=== PATIENT | female | born 1980 | race Caucasian/White ===

== ENCOUNTER 2024-12-10 08:13 | Emergency (ER) | payer OTHER, SELFPAY ==
[2024-12-10 08:14] VITALS: BP 114/87; PULSE 84; RESP 16; TEMP 36.8; O2SAT 100; BMI 33.4
[2024-12-10 08:16] VITALS: BP 110/76; PULSE 84; RESP 16
--- NOTE | 2024-12-10 08:49 | ED.VIS.BACK ---
HPI History of Present Illness Chief Complaint: Chest Pain Detail of Chief Complaint: Left posterior shoulder pain. Denies any trauma. Informant: patient Onset/Context/Timing Onset: Days Context: Gradual Onset Timing: Continuous Quality: Sharp Location: - (Left posterior shoulder blade medially.) Current Severity: Moderate Maximum Severity: Moderate Worsened by: improves with Movement Relieved by: Nothing Associated Symptoms Associated Symptoms: Negative for Numbness, Tingling, Radiation to Right Leg, Radiation to Left Leg, Fever, Abdominal Pain, Dysuria, Unable to Ambulate, Unable to Transfer, Urinary Retention, Urinary Incontinence, Constipation or Fecal Incontinence Narrative Narrative: 44-year-old female no past medical history. Complaining of left posterior shoulder blade soft tissue pain. Denies any fall injury or trauma. 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 She is left-hand dominant send and radiates to the back of her left shoulder. Denies any chest pain. No shortness of breath. No exertional dyspnea or exertional chest pain. No cardiac history. Prior similar symptoms: No Recent Illness/Hospitalization: No PFSH PFSH Medical History no medical history no medical history Home Medications ?Medication ?Instructions ?Recorded ?Last Taken ?Type metaxalone 800 mg tablet 800 mg PO TID 7 days #21 tabs 12/10/24 Unknown Rx Allergy/AdvReac Type Severity Reaction Status Date / Time No Known Allergies Allergy Verified 12/10/24 08:14 Surgical History no surgical history Social History Smoking Status: Former smoker ROS ROS ED ROS Narrative Left posterior upper back and shoulder blade pain. Constitutional Constitutional ED: Denies chills or fever(s) Eyes Eyes: Denies blurry vision ENT ENT ED: Denies ear pain Cardiovascular Cardiovascular: Denies chest pain Respiratory/Chest Respiratory/Chest: Denies dyspnea or dyspnea on exertion Gastrointestinal Gastrointestinal: Denies abdominal pain Genitourinary Genitourinary ED: Denies dysuria or hematuria Musculoskeletal Musculoskeletal: Denies arthralgias or back pain Integumentary Denies abscess Neurologic Neurologic: Denies headache(s) Psychiatric Psychiatric: Denies anxiety Endocrine Endocrinology: Denies cold intolerance Hematologic/Lymphatic Hematologic/Lymphatic: Denies easy bleeding Allergic/Immunologic Allergic/Immunologic ED: Denies mouth swelling EXAM Physical Exam Narrative Exam Narrative: Well-appearing 44-year-old female. Vital signs stable afebrile. Pulse ox 100% on room air no hypoxia. H EENT exam pupils round react light. Mytrex membranes. Neck nontender no JVD. No lymphadenopathy. Lungs clear to auscultation bilaterally. Heart regular rate and rhythm rate about 80 no murmur. Chest wall and ribs are nontender. Abdomen soft nontender. Moving all 4 extremities. 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 Dorsi plantarflexion. Calves are nontender without edema or cords. Normal radial pulses bilaterally. Back she has reproducible pain soft tissue between her upper thoracic spine and her shoulder blade. It is worse with range of motion. There is no ecchymosis or bruising. No redness or warmth. She has normal range of motion to her left shoulder. There is no swelling or redness to the shoulder. Pain is worse sitting upright. Const Vital Signs: 12/10/24 08:14 12/10/24 08:16 12/10/24 10:16 Temperature 98.2 F Temperature Source Temporal Pulse Rate 84 84 73 Respiratory Rate 16 16 17 Blood Pressure 114/87 H 110/76 Blood Pressure Mean 96 87 Pulse Ox 100 98 Oxygen Delivery Method Room Air Room Air 12/10/24 10:19 Temperature Temperature Source Pulse Rate Respiratory Rate Blood Pressure Blood Pressure Mean Pulse Ox Oxygen Delivery Method Room Air Positive well nourished and well developed; Negative for cachectic, contractures or unkempt General Appearance ED: well developed; Negative for unkempt, cachectic, contractures or pallor Nutritional Appearance: Negative for cachectic HEENT Reports moist mucous membranes Negative for trauma or tenderness Eyes PERRL and EOMs intact bilaterally Neck no lymphadenopathy, supple and no JVD Resp normal respiratory effort and clear to auscultation bilaterally Cardio regular rate, regular rhythm, S1 normal heart sound, S2 normal heart sound and no murmurs GI normal to inspection, nondistended, normoactive bowel sounds, soft to palpation, non-tender, non-distended and no masses Back/Spine no thoracic nor lumbar tenderness; Negative for normal to inspection Back/Spine Narrative: Parathoracic soft tissue tenderness consistent with myofascial strain and spasm. No bony tenderness. Normal appearance on the skin. No redness or warmth. No bruising or swelling. Extremity normal to inspection and no clubbing, cyanosis or edema Extremity Narrative: Normal range of motion left shoulder. Shoulder nontender. Normal range of motion, strength and sensation to the left upper extremity. General Extremety ED: Negative for edema or tenderness General Extremity: Negative for edema Neuro oriented x3 and no sensory deficits noted Sensorium / Orientation: alert; Negative for confused, lethargic or stuporous Motor Exam: strength 5/5 throughout Psych mental status grossly normal Appearance: Negative for unkempt Attitude: No agitated Mood & Affect: Negative for depressed, sad or tearful Skin no rashes or lesions noted and no wounds General Skin Exam: Negative for jaundice or pallor Lesions: No lesion noted Rashes: No rashes noted Trauma: Negative for abrasion or puncture Wounds: Negative for wounds noted MDM MDM MDM Narrative Medical decision making narrative: 44-year-old with left posterior shoulder upper back pain consistent with a myofascial strain and spasm. I do not think this is cardiac. She was triaged as chest pain she is not having any chest pain this has been going on a week. She is not having any exertional symptoms. She has a normal EKG. Cardiac labs and chest x-ray to be obtained should be treated with Toradol and Skelaxin I think this is all musculoskeletal in etiology. Repeat exam at 10:43 AM patient doing well. Some relief with the Toradol. We went over her test results. Clinically this is not cardiac chest pain. Its all back pain. Consistent with muscle spasm type of work she does. She will be discharged home. Anti-inflammatories. Hot shower, warm bath, massage. Skelaxin 3 times a day till gone. This should progressively improve. She and I discussed all of her test results. History & Record Review Discussion w/independent historian: Patient Lab Data Attestation: I reviewed the patient's lab results. Lab results narrative: CBC normal. White count 8. H&H 13 and 40. Platelets 304. Electrolytes unremarkable gap 10. BUN 9 creatinine 0.6. Glucose 90. Troponin less than 6. Chest x-ray unremarkable. Labs: Laboratory Results - last 24 hr 12/10/24 08:57 WBC 8.8 RBC 4.50 Hgb 13.5 Hct 40.6 MCV 90.2 MCH 30.0 MCHC 33.3 RDW Std Deviation 44.6 H RDW Coeff of Molly 13.4 Plt Count 304 MPV 10.6 Immature Gran % (Auto) 0.200 Neut % (Auto) 50.8 Lymph % (Auto) 33.0 [place] % (Auto) 10.2 H Eos % (Auto) 3.6 Baso % (Auto) 2.2 H Absolute Neuts (auto) 4.5 Absolute Lymphs (auto) 2.91 Nucleated RBC % 0 Sodium 138 Potassium 4.0 Chloride 106 Carbon Dioxide 22.7 Anion Gap 10 BUN 9 Creatinine 0.62 L Estim Creat Clear Calc 131.80 Est GFR (MDRD) Non-Af 114 BUN/Creatinine Ratio 15.3 Glucose 90 Calcium 9.1 Troponin T High Sens < 6 Radiography Chest X-Ray - ED: 2 View, Read by ED Physician, Read by Radiologist, Normal, Heart, Lungs, Mediastinum, Bony Structures, No Acute Disease and Chronic Changes Diagnostic Testing: Clinical Impression(s) from Imaging Studies Chest X-Ray 12/10/24 09:15 IMPRESSION: NO ACUTE FINDINGS. Reading Location: [facility] Chest x-ray, 2 views, AP and lateral, interpreted by myself and radiologist shows no acute abnormality. Normal cardiac silhouette. Normal lung costa. Rhythm Strip Rhythm Strip: Sinus Rhythm Rate: 80 Ectopy: None EKG Initial EKG: Attestation: I personally reviewed and interpreted this EKG as follows: Interpretation: Sinus Rhythm and No Acute Injury Pattern Comments: Normal sinus rhythm rate of 80 no acute signs of [place] or ischemia. No dysrhythmia. Discharge Plan Triage Chief Complaint: Chest Pain Other Complaint: Upper Extremity Injury ED Provider: Alverto Azevedo Dx/Rx/DC Orders Clinical Impression: Back strain, Muscle spasm of back Instructions: ED Back Spasm, No Trauma Prescriptions: New metaxalone 800 mg tablet 800 mg PO TID 7 Days Qty: 21 0RF Primary Care Provider: Care Physician,No Primary Referrals: NOT,DEFINED [Non-Staff] - Activity Restrictions/Additional Instructions: Muscle spasm in your back. Motrin 600 mg 3 times a day. Tylenol in between as needed. The muscle relaxant Skelaxin 3 times a day till gone. Hot shower, warm bath, massage and hot tub. Follow-up with your doctor as needed. Print Language: Cambodian Disposition Disposition: Home, Self Care
[2024-12-10] MEDS: Ketorolac 30 MG/ML Syringe IV (09:01)
[2024-12-10 09:11] LABS: Hematocrit 40.6 % (37-47); Hemoglobin 13.5 g/dL (12.0-15.0); Immature Granulocytes Count 0.020 X10^3/uL (0.0-0.0); Mean Corp Hgb Conc 33.3 g/dL (32-36); Mean Corpuscular Volume 90.2 fL (81-99); Mean Platelet Vol. 10.6 fl (6.2-12.0); NRBC Flagged by Analyzer 0 % (0-5); Platelet Count 304 K/mm3 (150-450); RBC Distribution Width CV 13.4 % (11.6-14.6); RBC Distribution Width SD 44.6 fl (35.1-43.9); Red Blood Count 4.50 M/mm3 (4.2-5.4); White Blood Count 8.8 K/mm3 (4.4-11.0)
--- NOTE | 2024-12-10 09:15 | RAD_ITS ---
PROCEDURE: CHEST PA AND LATERAL 12/10/2024 REASON FOR EXAM: BACK PAIN. WITH SHOULDER PAIN TECHNIQUE: CHEST PA AND LATERAL COMPARISON: None. FINDINGS: Hardware: None. Heart: The heart size is normal. Mediastinum: The mediastinal contour is unremarkable. Lungs: No focal consolidation, pleural effusion or pneumothorax. Bones: Degenerative changes are identified within the thoracic spine. Cholecystectomy clips. RAD/Chest PA and Lateral IMPRESSION: NO ACUTE FINDINGS. Reading Location: [id number]
[2024-12-10 09:30] LABS: Anion Gap 10 (5-15); BUN 9 mg/dL (4-19); BUN/Creat Ratio 15.3 RATIO (10-20); Calcium,Total 9.1 mg/dL (7.6-11.0); Carbon Dioxide 22.7 mmol/L (21.0-32.0); Chloride 106 mmol/L (98-108); Estimated Creatinine Clearance 131.80 ml/min (50-250); Glucose 90 mg/dL (70-99); Potassium 4.0 mmol/L (3.3-5.1); Troponin T High Sensitivity < 6 ng/L (<=14)
[2024-12-10 10:16] VITALS: PULSE 73; RESP 17; O2SAT 98
[2024-12-10 10:52] VITALS: BP 110/76; PULSE 73; RESP 17; TEMP 36.8; O2SAT 98
== END 2024-12-10 10:55 | disposition home or self-care (01) ==
PROVIDERS: Emergency Provider Emergency Medicine; Visit Provider Emergency Medicine
DX: S29.012A Strain of muscle and tendon of back wall of thorax, initial encounter (principal); X58.XXXA Exposure to other specified factors, initial encounter; M62.830 Muscle spasm of back; Z87.891 Personal history of nicotine dependence
CPT/HCPCS: 71046; 80048; 84484; 85025; 93005; 96374; 99285; A4216